=== PATIENT | female | born 1960 | race Caucasian/White ===

== ENCOUNTER 2018-10-20 15:24 | Inpatient (IN) | payer OTHER ==
[~2018-10-20] VITALS: Ht 162.6 cm; Wt 131.2 kg
[~2018-10-20 15:24] MED LIST: LEVOTHYROXINE 125 MCG TABLET PO ONE
[2018-10-20] MEDS ORDERED: NITROGLYCERIN SINGLE TAB 0.4 MG SL ONE ×2 (15:54→16:00)
[2018-10-20] MEDS ORDERED: NITROGLYCERIN/D5W PMX 250 ML IV PRN (16:00)
--- NOTE | 2018-10-20 16:13 | NUR ---
PATIENT BIB [facility] FOR SOB, DIZZINESS, CP, ISABEL, AND BILAT LOWER EXT SWELLING/PITTING EDEMA. PATIENT REPORTS RUNNING OUT OF LASIX 1 MONTH AGO. 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 IV ESTABLISHED, NITRO GIVEN PER MD ORDER, HOLD NITRO DRIP UNTIL BP GOES UP PER ERP. BP 112/85, EKG COMPLETED BY EMT. PIPE JEEPER ON PATIENT, PADS ON PATIENT, PATIENT SPEAKING FULL SENTENCES, LABS DRAWN, NO HOME O2, NOW 92% 4L NC. A+OX4. HR 120'S-190'S. AWAITING FURTHER ORDERS. Addendum: 10/20/18 at 1621 by ARTI CORRECTION, HR 70'S-190'S.
--- NOTE | 2018-10-20 16:19 | NUR ---
XRAY AT BEDSIDE.
[2018-10-20 16:22] LABS: BASOPHILS # (AUTO) 0.04 x10^3/uL (0-0.1); BASOPHILS % (AUTO) 1 % (0-1); EOSINOPHILS # (AUTO) 0.07 x10^3/uL (0-0.4); EOSINOPHILS % (AUTO) 1 % (1-7); LYMPHOCYTES # (AUTO) 1.48 x10^3/uL (1-3.4); LYMPHOCYTES % (AUTO) 29 % (22-44); MD NO; MEAN CORPUSCULAR HEMOGLOBIN 33.1 pg (27.0-34.8); MEAN CORPUSCULAR HGB CONC 32.4 g/dL (32.4-35.8); MEAN CORPUSCULAR VOLUME 102.2 fL (80-100); MONOCYTES # (AUTO) 0.27 x10^3/uL (0.2-0.8); MONOCYTES % (AUTO) 5 % (2-9); NEUTROPHILS # (AUTO) 3.29 x10^3/uL (1.8-6.8); NEUTROPHILS % (AUTO) 64 % (42-75); PLATELET COUNT 325 x10^3/uL (130-400); RED BLOOD COUNT 3.54 x10^6/uL (3.82-5.3); RED CELL DISTRIBUTION WIDTH 15.3 % (9.6-15.2)
[2018-10-20 16:28] LABS: INTERNATIONAL NORMALIZED RATIO 1.07 (0.93-1.1); PROTHROMBIN TIME 11.2 Seconds (9.6-11.5)
[2018-10-20 16:30] LABS: ALANINE AMINOTRANSFERASE 30 U/L (12-78); ALBUMIN 3.2 g/dL (3.4-5.0); ANION GAP 7 mmol/L (5-15); CALCIUM 9.1 mg/dL (8.5-10.1); CHLORIDE 106 mmol/L (98-107); CREATININE 1.23 mg/dL (0.55-1.02)
[2018-10-20 16:35] LABS: ALKALINE PHOSPHATASE 42 U/L (45-117); BILIRUBIN,TOTAL 0.2 mg/dL (0.2-1.0); FREE T4 (FREE THYROXINE) 0.16 ng/dL (0.76-1.46); TOTAL PROTEIN 7.8 g/dL (6.4-8.2); TROPONIN I < 0.015 ng/mL (0.000-0.045)
--- NOTE | 2018-10-20 16:44 | NUR ---
ED NEUROLOGY PHYSICIAN ASSISTANT CHANGED MONITOR TO LEAD V, HR READING 60'S-70'S AT THIS TIME.
[2018-10-20] MEDS ORDERED: ARIP5TAB13 PO (16:53)
[2018-10-20] MEDS ORDERED: AMLO10TA8 PO (16:53)
[2018-10-20] MEDS ORDERED: DIVA500T17 PO (16:53)
[2018-10-20] MEDS ORDERED: TRAM50TA2 PO (16:53)
[2018-10-20] MEDS ORDERED: ACET325T26 PO (16:53)
[2018-10-20] MEDS ORDERED: SENN-88 PO (16:53)
[2018-10-20] MEDS ORDERED: GABA800T5 PO (16:53)
[2018-10-20] MEDS ORDERED: CLON1TAB23 PO (16:54)
[2018-10-20] MEDS ORDERED: METO25TA35 PO (16:54)
[2018-10-20] MEDS ORDERED: DULO30CA2 PO (16:57)
[2018-10-20] MEDS ORDERED: ERGO500017 PO (16:57)
[2018-10-20] MEDS ORDERED: FUROSEMIDE 40 MG/4 ML IV ONE (17:30)
[2018-10-20] MEDS ORDERED: FUROSEMIDE 40 MG/4 ML ONE (17:53)
--- NOTE | 2018-10-20 17:59 | NUR ---
VS UPDATED IN CHART, PATIENT SITTING IN GURNEY WATCHING TV WITH SISTER AT BEDSIDE. LASIX ADMINISTERED PER ORDER. AWAITING BED ASSIGNMENT.
[2018-10-20] MEDS ORDERED: LEVOTHYROXINE 125 MCG TABLET PO ONE (18:00)
--- NOTE | 2018-10-20 18:19 | NUR ---
MEDICATION REQUEST SENT TO PHARMACY FOR SYNTHROID.
--- NOTE | 2018-10-20 18:26 | NUR ---
REPORT TO ABENA REBOLLEDO.
--- NOTE | 2018-10-20 18:28 | NUR ---
SYNTHROID ADMINISTERED PER ORDER, [facility] AT BEDSIDE. PATIENT SITTING IN [facility]. AWAITING FOR TRANSFER AFTER.
--- NOTE | 2018-10-20 18:42 | NUR ---
PATIENT TRANSFERRED/ADMITTED TO HOSPITAL BED UPSTAIRS.
[2018-10-20 19:00] VITALS: BP 157/99
[2018-10-20] MEDS ORDERED: POLYETHYLENE GLYCOL 17 GM PACKET PO PRN (20:30)
[2018-10-20] MEDS ORDERED: ENALAPRILAT 1.25 MG/ML, 2ML IVPush PRN (20:30)
[2018-10-20] MEDS ORDERED: LIDODERM 5% PATCH TD PRN (20:30)
[2018-10-20] MEDS ORDERED: TEMAZEPAM 15 MG CAPSULE PO PRN (20:30)
[2018-10-20] MEDS ORDERED: PHARMACY MAY ADJ FOR RENAL FX MC PRN (20:30)
[2018-10-20] MEDS ORDERED: ACETAMINOPHEN 325 MG TABLET PO SCH (20:30)
[2018-10-20] MEDS ORDERED: METOPROLOL TARTRATE 25 MG TABLET PO SCH (21:00)
[2018-10-20 21:40] VITALS: BP 112/80
[2018-10-20 23:04] LABS: TROPONIN I < 0.015 ng/mL (0.000-0.045)
[2018-10-20 23:32] VITALS: BP_SYST 87; BP_SYST 91; BP_DIAS 59; BP_DIAS 65
[2018-10-20] MEDS: APIXABAN 5 MG TABLET PO SCH (23:37)
[2018-10-20] MEDS: ARIPIPRAZOLE 5 MG TABLET PO SCH (23:38)
[2018-10-20] MEDS: GABAPENTIN 400 MG CAPSULE PO SCH (23:38)
[2018-10-20] MEDS: ACETAMINOPHEN 500 MG TABLET PO SCH (23:38)
[2018-10-20] MEDS: DIVALPROEX 500 MG TAB.ER.24H PO SCH (23:38)
[2018-10-20] MEDS: NICOTINE 21 MG/24 HR PATCH.TD24 TD SCH (23:38)
[2018-10-21 03:30] VITALS: BP 92/65
[2018-10-21 04:44] LABS: BASOPHILS # (AUTO) 0.02 x10^3/uL (0-0.1); BASOPHILS % (AUTO) 1 % (0-1); EOSINOPHILS # (AUTO) 0.12 x10^3/uL (0-0.4); EOSINOPHILS % (AUTO) 3 % (1-7); LYMPHOCYTES # (AUTO) 1.83 x10^3/uL (1-3.4); LYMPHOCYTES % (AUTO) 41 % (22-44); MD NO; MEAN CORPUSCULAR HEMOGLOBIN 34.3 pg (27.0-34.8); MEAN CORPUSCULAR HGB CONC 32.9 g/dL (32.4-35.8); MEAN CORPUSCULAR VOLUME 104.2 fL (80-100); MEAN PLATELET VOLUME 6.8 fL (7.4-10.4); MONOCYTES # (AUTO) 0.21 x10^3/uL (0.2-0.8); MONOCYTES % (AUTO) 5 % (2-9); NEUTROPHILS # (AUTO) 2.29 x10^3/uL (1.8-6.8); NEUTROPHILS % (AUTO) 51 % (42-75); PLATELET COUNT 279 x10^3/uL (130-400); RED CELL DISTRIBUTION WIDTH 15.3 % (9.6-15.2)
[2018-10-21 04:52] LABS: ANION GAP 5 mmol/L (5-15); CALCIUM 8.5 mg/dL (8.5-10.1); CHLORIDE 105 mmol/L (98-107); CREATININE 1.18 mg/dL (0.55-1.02)
[2018-10-21 04:56] LABS: TROPONIN I < 0.015 ng/mL (0.000-0.045)
[2018-10-21] MEDS: ACETAMINOPHEN 500 MG TABLET PO SCH (05:50)
[2018-10-21] MEDS: LEVOTHYROXINE 125 MCG TABLET PO SCH (05:51)
[2018-10-21] MEDS ORDERED: FUROSEMIDE 40 MG/4 ML IV SCH (07:30)
[2018-10-21 08:57] VITALS: BP 103/70
[2018-10-21] MEDS ORDERED: AMLODIPINE 10 MG TAB PO SCH (09:00)
[2018-10-21] MEDS: METOPROLOL TARTRATE 25 MG TABLET PO SCH ×2 (09:01→23:18)
[2018-10-21] MEDS: SENNA/DOCUSATE TABLET PO SCH (09:35)
[2018-10-21] MEDS: DULOXETINE 30 MG CAPSULE.DR PO SCH (09:36)
[2018-10-21] MEDS: GABAPENTIN 400 MG CAPSULE PO SCH ×3 (09:36→21:48)
[2018-10-21] MEDS: FUROSEMIDE 20 MG/2 ML IV SCH ×2 (09:36→17:40)
[2018-10-21] MEDS: DIVALPROEX 500 MG TAB.ER.24H PO SCH ×2 (09:36→21:47)
[2018-10-21] MEDS: APIXABAN 5 MG TABLET PO SCH ×2 (09:36→21:47)
[2018-10-21 14:28] VITALS: BP 118/86
[2018-10-21] MEDS: ACETAMINOPHEN 500 MG TABLET PO PRN (14:54)
[2018-10-21] MEDS ORDERED: FUROSEMIDE 20 MG/2 ML IV SCH (17:00)
[2018-10-21 19:25] VITALS: BP 89/61
[2018-10-21] MEDS ORDERED: CALCIUM CARBONATE 500 MG TAB.CHEW PO PRN (20:00)
[2018-10-21 21:45] VITALS: BP 106/73
[2018-10-21] MEDS: ARIPIPRAZOLE 5 MG TABLET PO SCH (21:48)
[2018-10-21 23:17] VITALS: BP 92/61
[2018-10-21] MEDS: NICOTINE 21 MG/24 HR PATCH.TD24 TD SCH (23:21)
[2018-10-22] VITALS (7 sets, daily range): BP systolic 92–121; BP diastolic 63–90
[2018-10-22 05:31] LABS: ALBUMIN 2.7 g/dL (3.4-5.0); ANION GAP 4 mmol/L (5-15); CALCIUM 8.2 mg/dL (8.5-10.1); CHLORIDE 104 mmol/L (98-107)
[2018-10-22 05:35] LABS: ALANINE AMINOTRANSFERASE 18 U/L (12-78); ALKALINE PHOSPHATASE 26 U/L (45-117); BILIRUBIN,TOTAL 0.2 mg/dL (0.2-1.0); CREATININE 1.19 mg/dL (0.55-1.02); TOTAL PROTEIN 6.2 g/dL (6.4-8.2)
[2018-10-22] MEDS: LEVOTHYROXINE 125 MCG TABLET PO SCH (06:18)
[2018-10-22] MEDS: GABAPENTIN 400 MG CAPSULE PO SCH ×3 (08:37→21:30)
[2018-10-22] MEDS: FUROSEMIDE 20 MG/2 ML IV SCH ×2 (08:37→16:56)
[2018-10-22] MEDS: APIXABAN 5 MG TABLET PO SCH ×2 (08:37→20:17)
[2018-10-22] MEDS: DULOXETINE 30 MG CAPSULE.DR PO SCH (08:38)
[2018-10-22] MEDS: METOPROLOL TARTRATE 25 MG TABLET PO SCH ×2 (08:39→20:17)
[2018-10-22] MEDS: DIVALPROEX 500 MG TAB.ER.24H PO SCH ×2 (08:39→20:17)
[2018-10-22] MEDS: SENNA/DOCUSATE TABLET PO SCH (08:39)
[2018-10-22] MEDS: ACETAMINOPHEN 500 MG TABLET PO PRN ×2 (13:11→20:22)
[2018-10-22] MEDS: ARIPIPRAZOLE 5 MG TABLET PO SCH (20:17)
[2018-10-22] MEDS: NICOTINE 21 MG/24 HR PATCH.TD24 TD SCH (23:09)
[2018-10-23 00:53] VITALS: BP 93/56
[2018-10-23] MEDS: ACETAMINOPHEN 500 MG TABLET PO PRN (04:37)
[2018-10-23] MEDS: LEVOTHYROXINE 125 MCG TABLET PO SCH (04:37)
[2018-10-23 06:26] LABS: ALBUMIN 2.8 g/dL (3.4-5.0); ANION GAP 5 mmol/L (5-15); CALCIUM 8.3 mg/dL (8.5-10.1); CHLORIDE 102 mmol/L (98-107)
[2018-10-23 06:30] LABS: ALANINE AMINOTRANSFERASE 20 U/L (12-78); ALKALINE PHOSPHATASE 27 U/L (45-117); BILIRUBIN,TOTAL 0.3 mg/dL (0.2-1.0); CREATININE 1.08 mg/dL (0.55-1.02); TOTAL PROTEIN 6.5 g/dL (6.4-8.2)
[2018-10-23 08:30] VITALS: BP 126/84
[2018-10-23] MEDS: FUROSEMIDE 20 MG/2 ML IV SCH (09:16)
[2018-10-23] MEDS: GABAPENTIN 400 MG CAPSULE PO SCH (09:16)
[2018-10-23] MEDS: DIVALPROEX 500 MG TAB.ER.24H PO SCH (09:17)
[2018-10-23] MEDS: DULOXETINE 30 MG CAPSULE.DR PO SCH (09:17)
[2018-10-23] MEDS: METOPROLOL TARTRATE 25 MG TABLET PO SCH (09:17)
[2018-10-23] MEDS: APIXABAN 5 MG TABLET PO SCH (09:17)
[2018-10-23] MEDS: SENNA/DOCUSATE TABLET PO SCH (09:18)
[2018-10-23] MEDS ORDERED: APIX5TAB PO (11:39)
[2018-10-23] MEDS ORDERED: FURO-93 PO (11:39)
[2018-10-23] MEDS ORDERED: POTA10TA11 PO (11:39)
[2018-10-23] MEDS ORDERED: LEVO125T PO (11:39)
[2018-10-23] MEDS ORDERED: METO25TA35 PO (11:39)
[2018-10-23 13:50] VITALS: BP 113/83
== END 2018-10-23 15:10 | disposition home health service (06) | DRG 308 ==
LOC: ED 17:30 → EDIP 17:59 → 5SO 18:52
PROVIDERS: ADMIT Internal Medicine; ATTEND Internal Medicine
DX: I48.0 Paroxysmal atrial fibrillation (principal); N17.0 Acute kidney failure with tubular necrosis; R53.2 Functional quadriplegia; F31.30 Bipolar disorder, current episode depressed, mild or moderate severity, unspecified; D68.59 Other primary thrombophilia; Z68.42 Body mass index [BMI] 45.0-49.9, adult; Q78.0 Osteogenesis imperfecta; E03.9 Hypothyroidism, unspecified; E66.01 Morbid (severe) obesity due to excess calories; F17.210 Nicotine dependence, cigarettes, uncomplicated; I10 Essential (primary) hypertension; R09.02 Hypoxemia; Z82.49 Family history of ischemic heart disease and other diseases of the circulatory system; Z83.3 Family history of diabetes mellitus; Z90.710 Acquired absence of both cervix and uterus; Z86.718 Personal history of other venous thrombosis and embolism; Z91.14 Patient's other noncompliance with medication regimen; Z98.84 Bariatric surgery status; Z90.49 Acquired absence of other specified parts of digestive tract; Z88.8 Allergy status to other drugs, medicaments and biological substances
CPT/HCPCS: 36415; 71045; 80048; 80053; 83880; 84439; 84443; 84484; 85025; 85610; 93005; 93306; 96374; G0378; J1940

== ENCOUNTER 2018-12-07 14:10 | Inpatient (IN) | payer OTHER ==
[~2018-12-07] VITALS: Ht 162.6 cm; Wt 110.1 kg
[~2018-12-07 14:10] MED LIST changes: +ACET325T26 PO; +AMLO10TA8 PO; +APIX5TAB PO; +ARIP5TAB13 PO; +CLON1TAB23 PO; +DIVA500T17 PO; +DULO30CA2 PO; +ERGO500017 PO; +FURO-93 PO; +GABA800T5 PO; +LEVO125T PO; -LEVOTHYROXINE 125 MCG TABLET PO ONE; +METO25TA35 PO; +POTA10TA11 PO; +SENN-88 PO; +TRAM50TA2 PO
--- NOTE | 2018-12-07 14:22 | NUR ---
58 Y/O FEMALE BIB AMBULANCE WITH C/O EDEMA. PER REPORT PT WAS D/C 10/2018 WITH NEW DX OF CHF. PIV ESTABLISHED RIVETER PNEUMATIC. PER PT "I;'VE BEEN GETTING MORE SWELLING IN MY LEGS THIS LAST WEEK. IN THE LAST 24 HOURS, THEY HAVE GOTTEN SIGNIFICANTLY WORSE. I CAN'T EVEN BARLEY BREATHE WHEN I GO FROM MY ROOM TO THE BATHROOM. 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 NO C/O N/V/D, TRAUMA,SYNCOPE, CP.
--- NOTE | 2018-12-07 14:26 | NUR ---
PT NOW STATING TO MED STUDENT "I HAVE PRESSURE IN MY CHEST. I'VE PAYED MORE ATTENTION TO IT NOW THAT I GOT THE DIAGNOSIS OF AFIB IN OCTOBER."
--- NOTE | 2018-12-07 14:28 | NUR ---
PT ALSO STATES "I HAVEN'T BEEN TAKING MY THYROID MEDICINE. I'M OUT."
[2018-12-07 14:54] LABS: BASOPHILS # (AUTO) 0.02 x10^3/uL (0-0.1); BASOPHILS % (AUTO) 0 % (0-1); EOSINOPHILS # (AUTO) 0.34 x10^3/uL (0-0.4); EOSINOPHILS % (AUTO) 6 % (1-7); LYMPHOCYTES # (AUTO) 0.84 x10^3/uL (1-3.4); LYMPHOCYTES % (AUTO) 14 % (22-44); MD NO; MEAN CORPUSCULAR HEMOGLOBIN 29.7 pg (27.0-34.8); MEAN CORPUSCULAR HGB CONC 31.3 g/dL (32.4-35.8); MEAN CORPUSCULAR VOLUME 95.1 fL (80-100); MEAN PLATELET VOLUME 7.2 fL (7.4-10.4); MONOCYTES % (AUTO) 7 % (2-9); NEUTROPHILS # (AUTO) 4.33 x10^3/uL (1.8-6.8); NEUTROPHILS % (AUTO) 73 % (42-75); PLATELET COUNT 333 x10^3/uL (130-400); RED BLOOD COUNT 3.07 x10^6/uL (3.82-5.3)
[2018-12-07 15:07] LABS: ALBUMIN 2.9 g/dL (3.4-5.0); ANION GAP 3 mmol/L (5-15); CALCIUM 8.3 mg/dL (8.5-10.1); CHLORIDE 113 mmol/L (98-107)
[2018-12-07 15:12] LABS: CREATININE 0.85 mg/dL (0.55-1.02); TROPONIN I < 0.015 ng/mL (0.000-0.045)
[2018-12-07] MEDS ORDERED: FUROSEMIDE 100 MG/10 ML IV ONE (15:30)
--- NOTE | 2018-12-07 16:48 | NUR ---
PT RESTING GURNEY. NO ACUTE DISTRESS NOTED. SISTER BEDSIDE.
[2018-12-07] MEDS ORDERED: FUROSEMIDE 40 MG/4 ML IV ONE ×2 (17:00→21:30)
--- NOTE | 2018-12-07 17:01 | NUR ---
REPORT TO ABENA GANNON. PER RECEIVING RN AND HOSPITALIST, NEW ORDER FOR LASIX WILL BE PLACED. NOT TO PUSH THE ORDER FROM EDMD. ALL QUESTIONS ANSWERED.
[2018-12-07] MEDS ORDERED: ACETAMINOPHEN 325 MG TABLET PO PRN (18:00)
[2018-12-07] MEDS ORDERED: hydrALAzine 20 MG/ML, 1ML IVPush PRN (18:00)
[2018-12-07] MEDS ORDERED: ONDANSETRON 2MG/ML, 2ML IVPush PRN (18:00)
[2018-12-07] MEDS ORDERED: NICOTINE 14MG/24 HR PATCH.TD24 ONE (18:09)
[2018-12-07] MEDS: POTASSIUM CHLORIDE 20 MEQ TAB.ER.PRT PO SCH (18:22)
[2018-12-07] MEDS: NICOTINE 14MG/24 HR PATCH.TD24 TD SCH (18:24)
[2018-12-07 18:33] VITALS: BP 123/87
[2018-12-07 21:25] VITALS: BP 108/73
[2018-12-07] MEDS: METOPROLOL TARTRATE 25 MG TABLET PO SCH (21:26)
[2018-12-07] MEDS: DIVALPROEX 500 MG TAB.ER.24H PO SCH (21:27)
[2018-12-07] MEDS: APIXABAN 5 MG TABLET PO SCH (21:27)
[2018-12-08 01:00] VITALS: BP 99/66
[2018-12-08] MEDS: LEVOTHYROXINE 125 MCG TABLET PO SCH (04:53)
[2018-12-08 05:12] LABS: BASOPHILS # (AUTO) 0.04 x10^3/uL (0-0.1); BASOPHILS % (AUTO) 1 % (0-1); EOSINOPHILS # (AUTO) 0.35 x10^3/uL (0-0.4); EOSINOPHILS % (AUTO) 8 % (1-7); LYMPHOCYTES # (AUTO) 1.19 x10^3/uL (1-3.4); LYMPHOCYTES % (AUTO) 29 % (22-44); MD NO; MEAN CORPUSCULAR HEMOGLOBIN 30.4 pg (27.0-34.8); MEAN CORPUSCULAR VOLUME 94.9 fL (80-100); MEAN PLATELET VOLUME 7.3 fL (7.4-10.4); MONOCYTES # (AUTO) 0.38 x10^3/uL (0.2-0.8); MONOCYTES % (AUTO) 9 % (2-9); NEUTROPHILS # (AUTO) 2.21 x10^3/uL (1.8-6.8); NEUTROPHILS % (AUTO) 53 % (42-75); PLATELET COUNT 309 x10^3/uL (130-400); RED BLOOD COUNT 3.02 x10^6/uL (3.82-5.3); RED CELL DISTRIBUTION WIDTH 16.8 % (9.6-15.2)
[2018-12-08 05:18] LABS: ANION GAP 4 mmol/L (5-15); CALCIUM 8.3 mg/dL (8.5-10.1); CHLORIDE 111 mmol/L (98-107); CREATININE 0.76 mg/dL (0.55-1.02)
[2018-12-08 08:25] VITALS: BP 99/66
[2018-12-08] MEDS ORDERED: FUROSEMIDE 40 MG/4 ML IV SCH (09:00)
[2018-12-08] MEDS: DIVALPROEX 500 MG TAB.ER.24H PO SCH ×2 (10:18→20:08)
[2018-12-08] MEDS: DULOXETINE 30 MG CAPSULE.DR PO SCH (10:18)
[2018-12-08] MEDS: SENNOSIDES 8.6 MG TABLET PO SCH (10:18)
[2018-12-08] MEDS: APIXABAN 5 MG TABLET PO SCH ×2 (10:19→20:08)
[2018-12-08] MEDS: METOPROLOL TARTRATE 25 MG TABLET PO SCH ×2 (10:20→20:09)
[2018-12-08 13:07] VITALS: BP 93/64
[2018-12-08 18:38] VITALS: BP 100/67
[2018-12-08] MEDS: FUROSEMIDE 20 MG/2 ML IV SCH (18:45)
[2018-12-08] MEDS: NICOTINE 14MG/24 HR PATCH.TD24 TD SCH (18:45)
[2018-12-08] MEDS: POTASSIUM CHLORIDE 20 MEQ TAB.ER.PRT PO SCH (18:46)
[2018-12-09 00:27] VITALS: BP 109/71
[2018-12-09 05:08] VITALS: BP 117/76
[2018-12-09] MEDS: LEVOTHYROXINE 125 MCG TABLET PO SCH (05:08)
[2018-12-09 05:59] LABS: BASOPHILS # (AUTO) 0.03 x10^3/uL (0-0.1); BASOPHILS % (AUTO) 1 % (0-1); EOSINOPHILS # (AUTO) 0.31 x10^3/uL (0-0.4); EOSINOPHILS % (AUTO) 7 % (1-7); LYMPHOCYTES # (AUTO) 1.19 x10^3/uL (1-3.4); LYMPHOCYTES % (AUTO) 28 % (22-44); MD NO; MEAN CORPUSCULAR HEMOGLOBIN 30.5 pg (27.0-34.8); MEAN CORPUSCULAR HGB CONC 32.3 g/dL (32.4-35.8); MEAN CORPUSCULAR VOLUME 94.3 fL (80-100); MEAN PLATELET VOLUME 7.3 fL (7.4-10.4); MONOCYTES # (AUTO) 0.38 x10^3/uL (0.2-0.8); MONOCYTES % (AUTO) 9 % (2-9); NEUTROPHILS # (AUTO) 2.38 x10^3/uL (1.8-6.8); NEUTROPHILS % (AUTO) 56 % (42-75); PLATELET COUNT 320 x10^3/uL (130-400); RED BLOOD COUNT 3.15 x10^6/uL (3.82-5.3); RED CELL DISTRIBUTION WIDTH 16.5 % (9.6-15.2)
[2018-12-09 06:18] LABS: ANION GAP 6 mmol/L (5-15); CALCIUM 8.1 mg/dL (8.5-10.1); CHLORIDE 107 mmol/L (98-107)
[2018-12-09 06:21] LABS: CREATININE 0.83 mg/dL (0.55-1.02)
[2018-12-09 06:50] VITALS: BP 110/72
[2018-12-09] MEDS: APIXABAN 5 MG TABLET PO SCH ×2 (08:06→21:20)
[2018-12-09] MEDS: DIVALPROEX 500 MG TAB.ER.24H PO SCH ×2 (08:07→21:20)
[2018-12-09] MEDS: FUROSEMIDE 20 MG/2 ML IV SCH ×2 (08:07→16:37)
[2018-12-09] MEDS: METOPROLOL TARTRATE 25 MG TABLET PO SCH ×2 (08:07→21:20)
[2018-12-09] MEDS: SENNOSIDES 8.6 MG TABLET PO SCH (08:08)
[2018-12-09] MEDS: DULOXETINE 30 MG CAPSULE.DR PO SCH (08:08)
[2018-12-09 12:58] VITALS: BP 108/68
[2018-12-09] MEDS: POTASSIUM CHLORIDE 20 MEQ TAB.ER.PRT PO SCH (16:36)
[2018-12-09] MEDS: NICOTINE 14MG/24 HR PATCH.TD24 TD SCH (18:09)
[2018-12-09 20:40] VITALS: BP 112/72
[2018-12-09 21:13] VITALS: BP 100/68
[2018-12-10 01:36] VITALS: BP 90/61
[2018-12-10] MEDS: LEVOTHYROXINE 125 MCG TABLET PO SCH (05:52)
[2018-12-10 06:02] LABS: BASOPHILS # (AUTO) 0.02 x10^3/uL (0-0.1); BASOPHILS % (AUTO) 1 % (0-1); EOSINOPHILS # (AUTO) 0.28 x10^3/uL (0-0.4); EOSINOPHILS % (AUTO) 7 % (1-7); LYMPHOCYTES # (AUTO) 1.09 x10^3/uL (1-3.4); LYMPHOCYTES % (AUTO) 25 % (22-44); MD NO; MEAN CORPUSCULAR HEMOGLOBIN 30.7 pg (27.0-34.8); MEAN CORPUSCULAR HGB CONC 32.7 g/dL (32.4-35.8); MEAN CORPUSCULAR VOLUME 93.7 fL (80-100); MEAN PLATELET VOLUME 7.3 fL (7.4-10.4); MONOCYTES # (AUTO) 0.37 x10^3/uL (0.2-0.8); MONOCYTES % (AUTO) 9 % (2-9); NEUTROPHILS % (AUTO) 60 % (42-75); PLATELET COUNT 301 x10^3/uL (130-400); RED BLOOD COUNT 3.28 x10^6/uL (3.82-5.3); RED CELL DISTRIBUTION WIDTH 16.5 % (9.6-15.2)
[2018-12-10 06:17] LABS: ANION GAP 8 mmol/L (5-15); CALCIUM 8.4 mg/dL (8.5-10.1); CHLORIDE 102 mmol/L (98-107); CREATININE 0.81 mg/dL (0.55-1.02)
[2018-12-10 06:20] VITALS: BP 141/79
[2018-12-10] MEDS: DIVALPROEX 500 MG TAB.ER.24H PO SCH (08:33)
[2018-12-10] MEDS: DULOXETINE 30 MG CAPSULE.DR PO SCH (08:33)
[2018-12-10] MEDS: APIXABAN 5 MG TABLET PO SCH (08:33)
[2018-12-10] MEDS: SENNOSIDES 8.6 MG TABLET PO SCH (08:33)
[2018-12-10] MEDS: FUROSEMIDE 20 MG/2 ML IV SCH (08:33)
[2018-12-10] MEDS: METOPROLOL TARTRATE 25 MG TABLET PO SCH (08:33)
[2018-12-10 12:20] VITALS: BP 135/84
[2019-01-21] MEDS ORDERED: METO25TA35 PO (15:15)
[2019-01-21] MEDS ORDERED: PREG75CA PO (15:15)
[2019-01-21] MEDS ORDERED: MULT-803 PO (15:15)
[2019-01-21] MEDS ORDERED: ASPI-515 PO (15:15)
[2019-01-21] MEDS ORDERED: LAMO25TB7 PO (15:15)
[2019-01-30] MEDS ORDERED: TAMS-11 PO (14:16)
[2019-01-30] MEDS ORDERED: PRED10TA PO (14:16)
[2019-01-30] MEDS ORDERED: METO25TA35 PO (14:16)
[2019-01-30] MEDS ORDERED: OMEP-110 PO (14:17)
[2019-01-30] MEDS ORDERED: AMOX1TAB12 PO (14:18)
== END 2018-12-10 15:00 | disposition home health service (06) | DRG 292 ==
LOC: ED 15:08 → EDIP 15:23 → 4EST 17:45 → DCLOUNGE 12-10 14:43
PROVIDERS: ADMIT Internal Medicine; ATTEND Internal Medicine
DX: I11.0 Hypertensive heart disease with heart failure (principal); Q78.0 Osteogenesis imperfecta; D68.69 Other thrombophilia; F31.30 Bipolar disorder, current episode depressed, mild or moderate severity, unspecified; Z68.41 Body mass index [BMI] 40.0-44.9, adult; I50.43 Acute on chronic combined systolic (congestive) and diastolic (congestive) heart failure; E03.9 Hypothyroidism, unspecified; E66.01 Morbid (severe) obesity due to excess calories; G62.9 Polyneuropathy, unspecified; F17.200 Nicotine dependence, unspecified, uncomplicated; I48.0 Paroxysmal atrial fibrillation; R60.1 Generalized edema; Z88.8 Allergy status to other drugs, medicaments and biological substances; Z91.030 Bee allergy status; Z79.01 Long term (current) use of anticoagulants; Z86.718 Personal history of other venous thrombosis and embolism; Z91.19 Patient's noncompliance with other medical treatment and regimen; Z71.3 Dietary counseling and surveillance
CPT/HCPCS: 36415; 71045; 80048; 82040; 83735; 83880; 84100; 84439; 84443; 84484; 85025; 93005; 93970; 99285; G0378; J1940; J2405